=== PATIENT | female | born 2000 | race Caucasian/White ===

== ENCOUNTER 2022-08-08 13:15 | Emergency (ER) | payer MEDICAID, OTHER ==
[~2022-08-08] VITALS: Ht 160 cm; Wt 90.0 kg
[2022-08-08 13:20] VITALS: BP 124/81
[2022-08-08] MEDS ORDERED: HYDROcodone/acetaminophen 5mg/325mg tablet PO ONE (15:10)
[2022-08-08] MEDS ORDERED: Cipro HC otic suspension 10ML bottle LEFT EAR ONE (15:10)
[2022-08-08] MEDS ORDERED: HYDR-3965 PO (15:11)
[2022-08-08] MEDS ORDERED: CIPR10DR LEFT EAR (15:11)
[2022-08-08] MEDS ORDERED: LEVO750T68 PO (15:11)
== END 2022-08-08 15:24 | disposition home or self-care (01) ==
LOC: ER 13:16
DX: H66.92 Otitis media, unspecified, left ear (principal); H72.92 Unspecified perforation of tympanic membrane, left ear; F31.9 Bipolar disorder, unspecified; Z88.0 Allergy status to penicillin
CPT/HCPCS: 99283